=== PATIENT | male | born 1995 | race African-American/Black ===

== ENCOUNTER 2023-12-09 01:32 | Emergency (ER) | payer SELFPAY ==
[2023-12-09] MEDS ORDERED: MORPHINE SULFATE 4 MG/ML CPJ (NOT FOR IM USE) IV STA (01:48)
[2023-12-09] MEDS ORDERED: ONDANSETRON HCL 4MG/2ML INJ IV STA (01:48)
[2023-12-09] MEDS: SODIUM CHLORIDE 3% 500ML IV SOLN IV NR (02:00)
[2023-12-09] MEDS: SODIUM CHLORIDE 0.9% 1,000 ML IV ONE (02:00)
[2023-12-09 03:28] VITALS: BP 152/90
[2023-12-09] MEDS: PROPOFOL 10MG/ML 100ML 100 ML IV PRN (03:28)
[2023-12-09] MEDS ORDERED: MORPHINE SULFATE 4 MG/ML CPJ (NOT FOR IM USE) IV NR (03:30)
[2023-12-09] MEDS ORDERED: ONDANSETRON HCL 4MG/2ML INJ IV NR (03:30)
[2023-12-09] MEDS ORDERED: MIDAZOLAM HCL 2 MG/2 ML VIAL ONE (03:40)
[2023-12-09] MEDS ORDERED: MIDAZOLAM HCL 2 MG/2 ML VIAL IV ONE (03:45)
[2023-12-09 04:25] VITALS: PULSE 67; RESP 20
[2023-12-09] MEDS ORDERED: IOHEXOL-300 100 ML BOTTLE ONE (04:41)
[2023-12-10] MEDS ORDERED: IOHEXOL-300 100 ML BOTTLE ONE (12:04)
== END 2023-12-09 03:49 | disposition short-term general hospital (02) ==
LOC: EDBD 01:32 → ER 01:32
DX: S00.12XA Contusion of left eyelid and periocular area, initial encounter (principal); S00.03XA Contusion of scalp, initial encounter; S60.811A Abrasion of right wrist, initial encounter; R51.9 Headache, unspecified; J96.00 Acute respiratory failure, unspecified whether with hypoxia or hypercapnia; F19.90 Other psychoactive substance use, unspecified, uncomplicated; Y08.89XA Assault by other specified means, initial encounter; Y93.89 Activity, other specified; Y92.89 Other specified places as the place of occurrence of the external cause; Y99.8 Other external cause status
CPT/HCPCS: 70450; 70486; 72125; 74177; 31500; 96360; 99291; Q9967; J2250; J2405; J2704; J2270; J7030; Z7610 ×3; 94002